=== PATIENT | male | born 1990 | race Caucasian/White ===

== ENCOUNTER 2021-03-09 10:30 | Emergency (ER) | payer OTHER, BC ==
[2021-03-09 11:48] VITALS: BP 112/75; PULSE 64; TEMP 98.3; BMI 32.0
[2021-03-09] MEDS ORDERED: IBUPROFEN 600 MG TABLET (FP) PO ONE ×2 (12:22→12:25)
[2021-03-09] MEDS ORDERED: METHOCARBAMOL 500 MG TABLET PO ONE (12:22)
[2021-03-09] MEDS ORDERED: METHOCARBAMOL 500 MG TABLET ONE (12:24)
== END 2021-03-09 12:51 | disposition home or self-care (01) ==
LOC: JERFT 10:30
DX: S13.4XXA Sprain of ligaments of cervical spine, initial encounter (principal); S29.012A Strain of muscle and tendon of back wall of thorax, initial encounter; V89.2XXA Person injured in unspecified motor-vehicle accident, traffic, initial encounter; Y92.9 Unspecified place or not applicable
CPT/HCPCS: 72050-TC-FY; 99284-25